=== PATIENT | female | born 1985 | race African-American/Black ===

== ENCOUNTER 2017-08-22 15:00 | Emergency (ER) | payer MEDICAID ==
[~2017-08-22] VITALS: Ht 157.5 cm; Wt 64.0 kg
[2017-08-22 18:05] VITALS: BP 125/74
== END 2017-08-22 19:39 | disposition left against medical advice (07) ==
LOC: ER 15:40
DX: Z53.21 Procedure and treatment not carried out due to patient leaving prior to being seen by health care provider (principal)

== ENCOUNTER 2018-12-21 15:47 | Emergency (ER) | payer MEDICAID, OTHER ==
[~2018-12-21] VITALS: Ht 157.5 cm; Wt 63.0 kg
[2018-12-21] MEDS ORDERED: PEN G BENZ/PEN G PROCAINE CR 1.2 MMU/2 ML IM ONE (17:00)
[2018-12-21] MEDS ORDERED: IBUPROFEN 600MG TABLET PO ONE (17:00)
[2018-12-21 17:38] VITALS: BP 127/87
== END 2018-12-21 17:43 | disposition home or self-care (01) ==
LOC: ER 15:47
DX: J03.80 Acute tonsillitis due to other specified organisms (principal); B96.89 Other specified bacterial agents as the cause of diseases classified elsewhere; F17.210 Nicotine dependence, cigarettes, uncomplicated
CPT/HCPCS: 96372; 99283; J0558